=== PATIENT | male | born 1985 | race Caucasian/White ===

== ENCOUNTER 2018-05-15 10:46 | Observation (INO) | payer MEDICAID, OTHER ==
[~2018-05-15] VITALS: Ht 182.9 cm; Wt 123.0 kg
[2018-05-15] MEDS ORDERED: FENTANYL PF 100 MCG/2ML ONE (11:44)
[2018-05-15] MEDS ORDERED: FENTANYL PF 100 MCG/2ML IV ONE (12:00)
[2018-05-15] MEDS ORDERED: SERT50TA PO (13:58)
[2018-05-15] MEDS ORDERED: HEPARIN 5,000 UNITS/ML, 1ML IV ONE (14:00)
[2018-05-15] MEDS ORDERED: HEPARIN 5,000 UNITS/ML, 1ML IV PRN (14:00)
[2018-05-15] MEDS ORDERED: HEPARIN 25,000 UNITS/500ML PMX 500 ML IV PRN (14:00)
[2018-05-15 14:13] LABS: BASOPHILS # (AUTO) 0.04 x10^3/uL (0-0.1); BASOPHILS % (AUTO) 1 % (0-1); EOSINOPHILS # (AUTO) 0.24 x10^3/uL (0-0.4); EOSINOPHILS % (AUTO) 3 % (1-7); LYMPHOCYTES # (AUTO) 1.42 x10^3/uL (1-3.4); LYMPHOCYTES % (AUTO) 18 % (22-44); MD NO; MEAN CORPUSCULAR HEMOGLOBIN 28.7 pg (27.5-34.5); MEAN CORPUSCULAR HGB CONC 34.9 g/dL (33.2-36.2); MEAN CORPUSCULAR VOLUME 82.2 fL (81-97); MEAN PLATELET VOLUME 8.2 fL (7.4-10.4); MONOCYTES # (AUTO) 0.63 x10^3/uL (0.2-0.8); MONOCYTES % (AUTO) 8 % (2-9); NEUTROPHILS # (AUTO) 5.65 x10^3/uL (1.8-6.8); NEUTROPHILS % (AUTO) 71 % (42-75); PLATELET COUNT 223 x10^3/uL (130-400); RED CELL DISTRIBUTION WIDTH 13.1 % (9.4-14.8)
[2018-05-15 14:18] LABS: ALBUMIN 3.8 g/dL (3.4-5.0); ANION GAP 7 mmol/L (5-15); CALCIUM 8.4 mg/dL (8.5-10.1); CHLORIDE 107 mmol/L (98-107); CREATININE 1.05 mg/dL (0.7-1.3)
[2018-05-15] MEDS ORDERED: ONDANSETRON 2MG/ML, 2ML IVPush PRN (14:30)
[2018-05-15] MEDS ORDERED: BISACODYL 10 MG SUPP PR PRN (14:30)
[2018-05-15] MEDS ORDERED: POLYETHYLENE GLYCOL 17 GM PACKET PO PRN (14:30)
[2018-05-15] MEDS ORDERED: ENALAPRILAT 1.25 MG/ML, 2ML IVPush PRN (14:30)
[2018-05-15] MEDS ORDERED: DOCUSATE 100 MG CAPSULE PO PRN (14:30)
[2018-05-15] MEDS ORDERED: ACETAMINOPHEN 325 MG TABLET PO PRN (14:30)
[2018-05-15 16:56] VITALS: BP 110/70
[2018-05-15] MEDS: ENOXAPARIN 120MG/0.8ML SQ SCH (17:00)
[2018-05-15] MEDS: MORPHINE SULFATE 4 MG/ML, 1ML IVPush PRN ×2 (18:03→21:57)
[2018-05-15 19:26] VITALS: BP 111/72
[2018-05-15] MEDS ORDERED: SERTRALINE 50MG TABLET PO SCH (21:00)
[2018-05-16 03:16] VITALS: BP 130/73
[2018-05-16] MEDS: MORPHINE SULFATE 4 MG/ML, 1ML IVPush PRN ×3 (03:25→10:56)
[2018-05-16 06:15] LABS: BASOPHILS # (AUTO) 0.02 x10^3/uL (0-0.1); BASOPHILS % (AUTO) 0 % (0-1); EOSINOPHILS # (AUTO) 0.25 x10^3/uL (0-0.4); EOSINOPHILS % (AUTO) 3 % (1-7); LYMPHOCYTES # (AUTO) 1.28 x10^3/uL (1-3.4); LYMPHOCYTES % (AUTO) 17 % (22-44); MD NO; MEAN CORPUSCULAR HEMOGLOBIN 28.7 pg (27.5-34.5); MEAN CORPUSCULAR HGB CONC 34.1 g/dL (33.2-36.2); MEAN CORPUSCULAR VOLUME 84.1 fL (81-97); MEAN PLATELET VOLUME 8.3 fL (7.4-10.4); MONOCYTES # (AUTO) 0.79 x10^3/uL (0.2-0.8); MONOCYTES % (AUTO) 11 % (2-9); NEUTROPHILS # (AUTO) 5.06 x10^3/uL (1.8-6.8); NEUTROPHILS % (AUTO) 68 % (42-75); PLATELET COUNT 206 x10^3/uL (130-400); RED BLOOD COUNT 5.01 x10^6/uL (4.38-5.82); RED CELL DISTRIBUTION WIDTH 13.5 % (9.4-14.8)
[2018-05-16 06:25] LABS: ANION GAP 8 mmol/L (5-15); CALCIUM 8.8 mg/dL (8.5-10.1); CHLORIDE 105 mmol/L (98-107); CREATININE 1.23 mg/dL (0.7-1.3)
[2018-05-16] MEDS: ENOXAPARIN 120MG/0.8ML SQ SCH (06:25)
[2018-05-16 07:26] VITALS: BP 142/77
[2018-05-16] MEDS ORDERED: RIVA20TA PO (10:58)
[2018-05-16] MEDS ORDERED: RIVA15TA PO (10:58)
== END 2018-05-16 12:26 | disposition home or self-care (01) ==
LOC: ED 13:52 → EDIP 13:53 → INTOOBSV 13:53 → 3NE 15:57 → DCLOUNGE 05-16 11:59
PROVIDERS: ADMIT Internal Medicine; ATTEND Internal Medicine
DX: I82.4Z2 Acute embolism and thrombosis of unspecified deep veins of left distal lower extremity (principal); F41.9 Anxiety disorder, unspecified; F17.200 Nicotine dependence, unspecified, uncomplicated; W01.0XXA Fall on same level from slipping, tripping and stumbling without subsequent striking against object, initial encounter; Y93.89 Activity, other specified; Y92.89 Other specified places as the place of occurrence of the external cause; Y99.8 Other external cause status
CPT/HCPCS: 36415; 73590; 80048; 82040; 85025; 85520; 93971; 96365; 96366; 96372; 96375; 96376; G0378; J1644; J1650; J3010